=== PATIENT | male | born 1950 | race Caucasian/White ===

== ENCOUNTER → 2017-04-25 | Outpatient (CLI) | payer MEDICARE, MEDICAID | END | disposition home or self-care (01) | LOC: MRI 10:44 | DX: M17.12 Unilateral primary osteoarthritis, left knee (principal); M23.52 Chronic instability of knee, left knee; M71.22 Synovial cyst of popliteal space [Baker], left knee; M22.2X2 Patellofemoral disorders, left knee ==

== ENCOUNTER → 2019-10-15 | Outpatient (CLI) | payer MEDICARE, MEDICAID | END | disposition home or self-care (01) | LOC: US 09:19 | DX: R10.84 Generalized abdominal pain (principal); R10.2 Pelvic and perineal pain ==

== ENCOUNTER → 2019-10-17 | Outpatient (CLI) | payer MEDICARE, MEDICAID | END | disposition home or self-care (01) | LOC: CT 00:18 | DX: K76.0 Fatty (change of) liver, not elsewhere classified (principal); R10.2 Pelvic and perineal pain; R14.0 Abdominal distension (gaseous) ==

== ENCOUNTER → 2019-10-27 | Outpatient (CLI) | payer MEDICARE, MEDICAID | END | disposition home or self-care (01) | LOC: NM 06:48 | DX: R10.84 Generalized abdominal pain (principal) ==

== ENCOUNTER → 2019-11-03 | Outpatient (CLI) | payer MEDICARE, MEDICAID | END | disposition home or self-care (01) | LOC: CARD 11:23 | DX: I05.9 Rheumatic mitral valve disease, unspecified (principal); I35.8 Other nonrheumatic aortic valve disorders ==

== ENCOUNTER → 2019-11-28 | Outpatient (CLI) | payer MEDICARE, MEDICAID ==
[~2019-11-28] MED LIST: NORCO 5-325 TA1 EACH PO; OMEPRAZOLE40 MG PO; TYLENOL325 M3 PO
[2019-11-28 13:03] LABS: BASO # 0.1 10*3/uL (0.0-0.1); BASO % 0.9 % (0.0-1.0); EOS # 0.1 10*3/uL (0.0-0.4); EOS % 0.7 % (1.0-4.0); LYMPH # 2.6 10*3/uL (1.3-4.4); LYMPH % 36.8 % (27.0-41.0); MEAN CELL VOLUME 93.5 fl (80.0-94.0); MEAN CORPUSCULAR HGB 31.1 pg (27.0-31.0); MEAN CORPUSCULAR HGB CONC 33.3 g/dl (33.0-37.0); MEAN PLATELET VOLUME 8.7 fl (9.6-12.3); MONO # 0.9 10*3/uL (0.1-1.0); MONO % 12.3 % (3.0-9.0); NEUT # 3.5 10*3/uL (2.3-7.9); NEUT % 49.2 % (47.0-73.0); PLATELET COUNT AUTOMATED 416 10*3/uL (130-400); RED CELL DISTRI WIDTH 13.2 % (0-14.5)
[2019-11-28 13:28] LABS: ALBUMIN 3.5 gm/dl (3.1-4.5); ALKALINE PHOSPHATASE 104 U/L (45-117); BILIRUBIN, DIRECT < 0.1 mg/dL (0.0-0.2); BUN 7 mg/dl (7-24); CHLORIDE 105 mmol/L (98-107); POTASSIUM 3.9 mmol/L (3.5-5.1); SGOT/AST 20 IU/L (3-35); SGPT/ALT 28 U/L (12-78); SODIUM 138 mmol/L (136-145); TOTAL PROTEIN 7.6 gm/dL (6.4-8.2)
[2019-11-28 13:29] LABS: ACT PARTIAL THROMBO TIME 33.3 SECONDS (20.0-32.1)
[2019-11-28 13:31] LABS: BILIRUBIN NEGATIVE (NEGATIVE); BLOOD NEGATIVE (NEGATIVE); CLARITY SL CLOUDY (CLEAR); COLOR YELLOW (YELLOW); GLUCOSE NEGATIVE (NEGATIVE); KETONE NEGATIVE (NEGATIVE); LEUKO ESTERASE NEGATIVE (NEGATIVE); MUCOUS 1+; NITRITE NEGATIVE (NEGATIVE); UROBILINOGEN 0.2 E.U./dl (0.2-1.0)
== END | disposition home or self-care (01) ==
LOC: LAB 11:06
PROVIDERS: Surgery
DX: D68.8 Other specified coagulation defects (principal)

== ENCOUNTER → 2019-12-04 | Day surgery (SDC) | payer MEDICARE, MEDICAID ==
[2019-11-28 12:10] VITALS: BP 132/71
[~2019-12-04] VITALS: Ht 175.2 cm; Wt 71.7 kg
[2019-12-04 07:00] VITALS: BP 141/85
--- NOTE | 2019-12-04 07:29 | NUR ---
PATIENT ABD CLIPPED/ PREPPED WITH EDDI WIPES
[2019-12-04 09:11] VITALS: BP 163/85
[2019-12-04 09:26] VITALS: BP 128/78
[2019-12-04 09:41] VITALS: BP 136/74
[2019-12-04 09:56] VITALS: BP 140/75
[2019-12-04 10:11] VITALS: BP 135/78
== END | disposition home or self-care (01) ==
LOC: SDC 11-28 13:15
DX: K81.1 Chronic cholecystitis (principal); K82.8 Other specified diseases of gallbladder; K21.9 Gastro-esophageal reflux disease without esophagitis; M19.90 Unspecified osteoarthritis, unspecified site; Z87.891 Personal history of nicotine dependence; Z82.3 Family history of stroke

== ENCOUNTER 2020-05-07 09:47 | Emergency (ER) | payer MEDICARE, MEDICAID ==
[~2020-05-07] VITALS: Wt 68.0 kg
== END 2020-05-07 10:32 | disposition home or self-care (01) ==
LOC: ED 09:47
DX: H57.11 Ocular pain, right eye (principal); Z91.040 Latex allergy status; Z79.899 Other long term (current) drug therapy